=== PATIENT | female | born 1945 | race Caucasian/White ===

== ENCOUNTER 2017-01-05 13:53 | Outpatient (CLI) | payer MEDICARE ==
--- NOTE | 2017-01-05 16:42 | RAD ---
LUMBAR SPINE 2 VIEWS: Date: 01/05/17 HISTORY: Back pain. Back surgery. COMPARISON: 11/24/16. FINDINGS: Bilateral pedicle screws and vertical rods remain in place at the L4-5 level. No perihardware lucenc y is reliably demonstrated. Vertebral body heights are maintained. Disc space narrowing at the L2-3 level and minimal degenerative retrolisthesis at the L3-4 level are similar in appearance to the tennille or study. Other pedicles are intact. There is osteophytosis throughout the thoracic spine. Prominent calcifica tions noted within the arterial structures. IMPRESSION: 1. Postoperative and degenerative changes of lumbar spine appear stable. \E\ 2. Atherosclerosis. POS: [facility]
== END 2017-01-05 13:54 | disposition home or self-care (01) ==
LOC: TBSIIMAG 13:53
PROVIDERS: ATTEND Neurological Surgery
DX: M51.36 Other intervertebral disc degeneration, lumbar region (principal); M47.816 Spondylosis without myelopathy or radiculopathy, lumbar region; Z98.890 Other specified postprocedural states; I25.10 Atherosclerotic heart disease of native coronary artery without angina pectoris
CPT/HCPCS: 72100